=== PATIENT | male | born 1990 | race Two or more races ===

== ENCOUNTER 2020-05-12 18:52 | Emergency (ER) | payer SELFPAY ==
[~2020-05-12] VITALS: Ht 167.6 cm; Wt 68.0 kg
[~2020-05-12 18:52] MED LIST: LORazepam Inj 2mg/ml 1ml ONE
[2020-05-12] MEDS ORDERED: LORazepam Inj 2mg/ml 1ml IM ONE (19:00)
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
[2020-05-12 19:33] VITALS: BP 144/96
[2020-05-12] MEDS ORDERED: Haloperidol 5mg/ml Inj IM ONE (19:45)
[2020-05-12] MEDS ORDERED: DiphenhydrAMINE 50mg/ml Inj IM ONE (19:45)
--- NOTE | 2020-05-12 21:07 | Diagnostic Imaging Report ---
EXAM: CT Head Without Intravenous Contrast CLINICAL HISTORY: H/A TECHNIQUE: Axial computed tomography images of the head/brain without intravenous contrast. CTDI is 53.4 mGy and DLP is 1072.2 mGy-cm. One or more of the following dose reduction techniques were used: automated exposure control, adjustment of the mA and/or kV according to patient size, use of iterative reconstruction technique. COMPARISON: No relevant prior studies available. FINDINGS: Brain: Unremarkable. No hemorrhage. No significant white matter disease. No edema. Ventricles: Unremarkable. No ventriculomegaly. Bones/joints: Unremarkable. No acute fracture. Soft tissues: Unremarkable. Sinuses: Unremarkable as visualized. No acute sinusitis. Mastoid air cells: Unremarkable as visualized. No mastoid effusion. IMPRESSION: No acute intracranial abnormality.
--- NOTE | 2020-05-12 21:09 | Diagnostic Imaging Report ---
EXAM: CT Maxillofacial Without Intravenous Contrast CLINICAL HISTORY: H/A TECHNIQUE: Axial computed tomography images of the face without intravenous contrast. CTDI is 15.3 mGy and DLP is 315.5 mGy-cm. One or more of the following dose reduction techniques were used: automated exposure control, adjustment of the mA and/or kV according to patient size, use of iterative reconstruction technique. COMPARISON: No relevant prior studies available. FINDINGS: Bones/joints: No acute fracture. Soft tissues: Unremarkable. Orbits: Unremarkable. Sinuses: Unremarkable. No air-fluid levels. IMPRESSION: No acute fracture.
[2020-05-12 21:19] VITALS: BP 144/102
--- NOTE | 2020-05-12 21:23 | NUR ---
Pt awake and alert, VSS, respirations even and unlabored, CT results negative, OK for halfway clearance, pt is cooperative and calm, OK to book per ED Casey TORO.
--- NOTE | 2020-05-15 06:40 | Emergency Room Report ---
History of Present Illness General Chief Complaint: Medical Clearance Source: Patient Present Illness HPI Unidentified male presents for evaluation. Brought in by EMS and [employer]. Here for retirement clearance. Is agitated and combative. Speaking rapidly and aggressively. Has potential head injury. Unclear when he sustained his head injury. Abrasions to forehead. Denies pain. Denies headache. Denies nausea o r vomiting. No other aggravating relieving factors. 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 COVID-19 Screening: Negative COVID-19 Patient History Past Medical History: none Past Surgical History: none Pertinent Family History: none Social History: Denies: smoking, alcohol use, drug use Immunizations: UTD Reviewed Nursing Documentation: PMH: Agreed; PSxH: Agreed Nursing Documentation-PMH Past Medical History: Deferred Review of Systems All Other Systems: negative except mentioned in HPI Physical Exam Vital Signs Date Time Temp Pulse Resp B/P (MAP) Pulse Ox O2 Delivery O2 Flow Rate FiO2 05/12/20 18:54 98.1 104 18 143/100 (114) 96 Room Air Sp02 EP Interpretation: reviewed, normal General Appearance: no apparent distress, alert, GCS 15, non-toxic Head: normocephalic, other - Abrasion to forehead Eyes: bilateral eye normal inspection, bilateral eye PERRL ENT: hearing grossly normal, normal pharynx, no angioedema, normal voice Neck: full range of motion, supple/symm/no masses Respiratory: chest non-tender, lungs clear, normal breath sounds, speaking full sentences Cardiovascular #1: regular rate, rhythm, no edema Cardiovascular #2: 2+ carotid (R), 2+ carotid (L), 2+ radial (R), 2+ radial (L), 2+ dorsalis pedis (R), 2+ dorsalis pedis (L) Gastrointestinal: normal bowel sounds, non tender, soft, non-distended, no guarding, no rebound Rectal: deferred Genitourinary: normal inspection, no CVA tenderness Musculoskeletal: back normal, normal range of motion, gait/station normal, non- tender Neurologic: other - disoriented Psychiatric: other - aggressive/disoriented Reflexes: 3+ bicep (R), 3+ bicep (L), 3+ tricep (R), 3+ tricep (L), 3+ knee (R), 3+ knee (L) Skin: no rash Lymphatic: no adenopathy Medical Decision Making Diagnostic Impression: Primary Impression: Medical clearance for incarceration Additional Impression: Head injury Qualified Codes: S09.90XA - Unspecified injury of head, initial encounter ER Course Hospital Course Unidentified male presents with head injury unclear timeline. In police custody. Aggressive Differential diagnoses include: skull fx, intracranial injury, concussion Clinical course Patient placed on stretcher. After initial history and physical I tempted to order CT but patient would not comply given his agitated and aggressive behavior Required sedation. Given Haldol Ativan and Benadryl with achieved effect. CT head and facial bone shows no acute process. Patient allowed to rest. [employer] at bedside. Patient is now more alert and o riented. Will discharge into police custody Diagnosis - head injury, medical clearance for incarceration Discharged into [employer] custody CT/MRI/US Diagnostic Results CT/MRI/US Diagnostic Results #1: Imaging Test Ordered: CT Head Impression Procedure: CT Head no Contrast EXAM: CT Head Without Intravenous Contrast CLINICAL HISTORY: H/A TECHNIQUE: Axial computed tomography images of the head/brain without intravenous contrast. CTDI is 53.4 mGy and DLP is 1072.2 mGy-cm. One or more of the following dose reduction techniques were used: automated exposure control, adjustment of the mA and/or kV according to patient size, use of iterative reconstruction technique. COMPARISON: No relevant prior studies available. FINDINGS: Brain: Unremarkable. No hemorrhage. No significant white matter disease. No edema. Ventricles: Unremarkable. No ventriculomegaly. Bones/joints: Unremarkable. No acute fracture. Soft tissues: Unremarkable. Sinuses: Unremarkable as visualized. No acute sinusitis. Mastoid air cells: Unremarkable as visualized. No mastoid effusion. IMPRESSION: No acute intracranial abnormality. CT/MRI/US Diagnostic Results #2: Imaging Test Ordered: CT facial bone Impression Procedure: CT Facial Bones no Contrast EXAM: CT Maxillofacial Without Intravenous Contrast CLINICAL HISTORY: H/A TECHNIQUE: Axial computed tomography images of the face without intravenous contrast. CTDI is 15.3 mGy and DLP is 315.5 mGy-cm. One or more of the following dose reduction techniques were used: automated exposure control, adjustment of the mA and/or kV according to patient size, use of iterative reconstruction technique. COMPARISON: No relevant prior studies available. FINDINGS: Bones/joints: No acute fracture. Soft tissues: Unremarkable. Orbits: Unremarkable. Sinuses: Unremarkable. No air-fluid levels. IMPRESSION: No acute fracture. Last Vital Signs Date Time Temp Pulse Resp B/P (MAP) Pulse Ox O2 Delivery O2 Flow Rate FiO2 05/12/20 21:19 95 18 144/102 100 05/12/20 19:33 Room Air 05/12/20 18:54 98.1 Status: improved Disposition: LAW ENFORCEMENT IN CUST Condition: Stable Referrals: NOT CHOSEN IPA/,REFERRING (PCP) Feliberto Bernardo [facility] Departure Forms: Residential Clearance Patient Instructions: Head Injury, Adult, [id number] Jaswinder Tabares MD May 15, 2020 06:40
== END 2020-05-12 21:24 ==
LOC: EMR 19:33
DX: S00.81XA Abrasion of other part of head, initial encounter (principal); X58.XXXA Exposure to other specified factors, initial encounter; Y92.9 Unspecified place or not applicable; R45.1 Restlessness and agitation
CPT/HCPCS: 70450; 70486; 96372; 99284; J1200; J1630